=== PATIENT | male | born 1975 | race Caucasian/White ===

== ENCOUNTER → 2018-10-07 | Outpatient (CLI) | payer OTHER ==
--- NOTE | 2018-10-07 08:49 | US ---
EXAMINATION TYPE: US liver DATE OF EXAM: 10/07/2018 COMPARISON: NONE CLINICAL HISTORY: R94.5 abnormal liver function test. Abnormal liver function tests, patient states no other symptoms. EXAM MEASUREMENTS: Liver Length: 15.8 cm Gallbladder Wall: 0.2 cm CBD: 0.4 cm Right Kidney: 11.4 x 5.7 x 5.2 cm Pancreas: obscured by overlying midline bowel gas Liver: There is increased echogenicity of the hepatic parenchyma with diminished visualization of the portal triads most commonly relating to hepatic steatosis and limiting evaluation for underlying hep atic masses. Gallbladder: wnl Evidence for sonographic Childs's sign: no CBD: visualized portions wnl, limited by overlying bowel gas Right Kidney: wnl IMPRESSION: 1. Sonographic findings most commonly related to hepatic steatosis. Correlate with liver function guilherme t results. 2. No sonographic evidence of cholelithiasis nor acute cholecystitis.
== END | disposition home or self-care (01) ==
LOC: RADUSWWP 08:04
PROVIDERS: ATTEND Family Medicine
DX: R94.5 Abnormal results of liver function studies (principal)
CPT/HCPCS: 76705

== ENCOUNTER → 2020-05-09 | Outpatient (CLI) | payer OTHER ==
[2020-05-10 01:26] LABS: Albumin 4.6 g/dL (3.80-4.90); Albumin/Globulin Ratio 2.09 (1.60-3.17); Bilirubin, Conjugated 0.2 mg/dL (0.20-0.40); Bilirubin,Unconjugated 0.5 mg/dL; Globulin 2.2 g/dL (1.6-3.3); Total Bilirubin 0.7 mg/dL (0.3-1.2); Total Protein 6.8 g/dL (6.2-8.2)
[2020-05-10 01:36] LABS: Ferritin 701.4 ng/mL (22.0-322.0)
== END | disposition home or self-care (01) ==
LOC: LABWHC1 15:02
PROVIDERS: ATTEND Family Medicine
DX: R94.5 Abnormal results of liver function studies (principal)
CPT/HCPCS: 36415; 80076; 82728; 82977; 84466

== ENCOUNTER → 2020-10-19 | Outpatient (CLI) | payer OTHER ==
--- NOTE | 2020-10-20 03:19 | MR ---
EXAMINATION TYPE: MR knee RT wo con DATE OF EXAM: 10/19/2020 COMPARISON: None HISTORY: Right knee pain. Multiplanar multiecho imaging of the right knee without contrast. There is moderate knee joint effusion. The anterior and posterior cruciate ligaments appear normal. T here is large horizontal tear through the anterior and posterior horns of the lateral meniscus. I see no definite tear of the medial meniscus. The collateral ligaments appear intact. There is no evidence of a fracture. I see no bony destructive process. Knee joint spaces are fairly normal. IMPRESSION: Horizontal tears of the anterior and posterior horns of the lateral meniscus. Knee joint effusion. No fracture. No evidence of ligamentous tear.
== END | disposition home or self-care (01) ==
LOC: RADMRIMAIN 16:51
PROVIDERS: ATTEND Family Medicine
DX: M23.341 Other meniscus derangements, anterior horn of lateral meniscus, right knee (principal); M23.351 Other meniscus derangements, posterior horn of lateral meniscus, right knee

== ENCOUNTER → 2021-06-13 | Outpatient (CLI) | payer BC ==
[2021-06-13 22:47] LABS: Basophils # (A) 0.04 X 10*3/uL (0.00-0.10); Basophils % (A) 0.5 %; Eosinophils # (A) 0.04 X 10*3/uL (0.04-0.35); Eosinophils % (A) 0.5 %; HCT 48.7 % (39.6-50.0); HGB 16.1 g/dL (13.0-17.0); Immature Grans, Automated 0.1 %; Lymphocytes # (A) 1.58 X 10*3/uL (0.90-5.00); Lymphocytes % (A) 20.1 %; MCH 34.1 pg (27.0-32.0); MCHC 33.1 g/dL (32.0-37.0); MCV 103.2 fL (80.0-97.0); Mean Platelet Volume 12.7 fL (9.5-12.2); Monocytes # (A) 0.69 X 10*3/uL (0.20-1.00); Monocytes % (A) 8.8 %; NRBC Per 100 WBC 0 /100 WBCS (0.0-0.0); Neutrophils # (A) 5.49 X 10*3/uL (1.80-7.70); Platelet Count 206 X 10*3/uL (140-440); RBC 4.72 X 10*6/uL (4.40-5.60); RDW 11.7 % (11.5-14.5); WBC 7.85 X 10*3/uL (4.50-10.00)
[2021-06-13 23:39] LABS: Anion Gap 12.3 mmol/L (10.00-18.00); Carbon Dioxide 23.5 mmol/L (20.0-27.5); Potassium 4.4 mmol/L (3.5-5.5)
== END | disposition home or self-care (01) ==
LOC: LABPAT 16:23
PROVIDERS: ATTEND Orthopaedic Surgery
DX: Z01.812 Encounter for preprocedural laboratory examination (principal); M23.91 Unspecified internal derangement of right knee
CPT/HCPCS: 36415; 80051; 85025

== ENCOUNTER → 2021-06-20 | Outpatient (CLI) | payer BC ==
[2021-06-21 00:27] LABS: ALT 45 U/L (10-49); AST 38 U/L (14-35); Albumin 4.6 g/dL (3.8-4.9); Alkaline Phosphatase 102 U/L (41-126); BUN/Creat Ratio 9.78 Ratio (12.00-20.00); Blood Urea Nitrogen 8.8 mg/dL (9.0-27.0); Calcium 9.4 mg/dL (8.7-10.3); Carbon Dioxide 24.5 mmol/L (20.0-27.5); Chloride 101 mmol/L (96-109); Chol/HDL Ratio 4.09 Ratio; Globulin 2.7 g/dL (1.6-3.3); Glucose 84 mg/dL (70-110); LDL Cholesterol,Calculated 92.5 mg/dL (0.0-131.0); Non-African American GFR(CKD) 103.5 (60.0-200.0); Potassium 4.1 mmol/L (3.5-5.5); Sodium 138 mmol/L (135-145); Total Protein 7.3 g/dL (6.2-8.2); Uric Acid 7.7 mg/dL (3.7-8.7)
[2021-06-21 01:09] LABS: Basophils # (A) 0.04 X 10*3/uL (0.00-0.10); Basophils % (A) 0.6 %; Eosinophils # (A) 0.05 X 10*3/uL (0.04-0.35); Eosinophils % (A) 0.7 %; HCT 47.7 % (39.6-50.0); HGB 15.9 g/dL (13.0-17.0); Immature Grans, Automated 0.3 %; Lymphocytes # (A) 1.49 X 10*3/uL (0.90-5.00); Lymphocytes % (A) 21.4 %; MCH 34.4 pg (27.0-32.0); MCHC 33.3 g/dL (32.0-37.0); MCV 103.2 fL (80.0-97.0); Mean Platelet Volume 12.8 fL (9.5-12.2); Monocytes # (A) 0.79 X 10*3/uL (0.20-1.00); Monocytes % (A) 11.4 %; NRBC Per 100 WBC 0 /100 WBCS (0.0-0.0); Neutrophils # (A) 4.57 X 10*3/uL (1.80-7.70); Neutrophils % (A) 65.6 %; Platelet Count 191 X 10*3/uL (140-440); RBC 4.62 X 10*6/uL (4.40-5.60); RDW 11.9 % (11.5-14.5); WBC 6.96 X 10*3/uL (4.50-10.00)
== END | disposition home or self-care (01) ==
LOC: LABWHC1 15:27
PROVIDERS: ATTEND Family Medicine
DX: Z00.00 Encounter for general adult medical examination without abnormal findings (principal)
CPT/HCPCS: 36415; 80053; 80061; 83036; 84443; 84550; 85025

== ENCOUNTER 2021-06-22 12:48 | Day surgery (SDC) | payer BC, OTHER ==
[2021-06-20 11:27] VITALS: BMI 34.2
--- NOTE | 2021-06-21 14:39 | HP ---
HISTORY AND PHYSICAL DATE OF SURGERY: 06/22/2021 Davide Troncoso is a 46-year-old gentleman seen with progressive right knee pain. We discussed options for treatment. He elected to proceed with right knee arthroscopy. Consent was obtained. PAST MEDICAL HISTORY: Gout, hypertension. PAST SURGICAL HISTORY: Noncontributory. DAILY MEDICATIONS: Allopurinol, amlodipine. ALLERGIES: NONE. SOCIAL HISTORY: He denies tobacco use. PHYSICAL EVALUATION OF THE RIGHT KNEE: Range of motion is zero to 120. Tenderness along the medial joint line. Tenderness along the lateral joint line. Positive lateral Donato's. Ligaments stable. Hip rotation without pain. Distal neurovascular exam intact. Right knee radiographs revealed mild osteoarthritis. MRI right knee revealed lateral meniscal tears and effusion. IMPRESSION: 1. Internal derangement of right knee lateral meniscal tear. 2. Hypertension. 3. Gout. PLAN: Right knee arthroscopy with partial lateral meniscectomy and debridement. MMODL / IJN: [id number] /
[~2021-06-22 12:48] MED LIST: DEXAMETHASONE SOD PHOSPHATE 4 MG/ML 1 ML VIAL IV ONE; LACTATED RINGERS 1,000 ML IV SCH; LIDOCAINE 1% (10MG/ML) FOR IV START INTRADERMA PRN; METOCLOPRAMIDE 5 MG/ML 2 ML VIAL IVP PRN; ONDANSETRON 4 MG/2 ML VIAL IVP ONE
[2021-06-22] MEDS ORDERED: KETOROLAC 15 MG/ML 1 ML VIAL ONE (15:21)
[2021-06-22] MEDS ORDERED: PROPOFOL 10 MG/ML 20 ML VIAL IV ONE (15:21)
[2021-06-22] MEDS ORDERED: MIDAZOLAM 2 MG/2 ML VIAL ONE (15:21)
[2021-06-22] MEDS ORDERED: fentaNYL (PF) 50 MCG/ML 2 ML AMP ONE (15:21)
[2021-06-22] MEDS ORDERED: HYDROmorphone (PF) 1 MG/ML ONE (15:21)
[2021-06-22] MEDS ORDERED: LIDOCAINE 2% INJ 20 MG/ML (2 ML VIAL) ONE (15:21)
[2021-06-22] MEDS ORDERED: BUPIVACAINE (PF) 0.25% 30 ML VIAL INTRAARTIC ONE (15:45)
--- NOTE | 2021-06-22 16:00 | P.OP ---
Date of Procedure: 06/22/21 Preoperative Diagnosis: Internal derangement right knee Postoperative Diagnosis: 1. Tear lateral meniscus right knee 2. Reactive synovitis medial, lateral and suprapatellar compartments right knee Procedure(s) Performed: 1. Arthroscopic partial medial meniscectomy right knee 2. Arthroscopic partial synovectomy medial, lateral and suprapatellar compartments right knee Anesthesia: PRINCEA, local Surgeon: Charles Sultana Estimated Blood Loss (ml): 5 Pathology: none sent Condition: stable Disposition: PACU Indications for Procedure: 46-year-old patient seen with progressive right knee pain. After treatment options were discussed, he elected to proceed with arthroscopy. Operative Findings: See description of procedure Description of Procedure: Patient was taken to the operative suite. Patient underwent a general an esthetic by the department of anesthesia. Patient was given preoperative antibiotics. The right lower extremity was placed in a well-padded arthroscopic leg murillo. The right leg was prepped and draped in the normal sterile orthopedic fashion. A lateral parapatellar and suprapatellar incision was made. Trochars were inserted. Arthroscopy was initiated. Suprapatellar pouch revealed diffuse thick reactive synovitis. The patellofemoral joint appeared to articulate congruently. There was no chondromalacia present. The scope was guided into the medial gutter. No loose bodies or plica were identified. The scope was then guided into the medial compartment. A medial parapatellar incision was made. Trocar inserted followed by probe. The medial meniscus was probed and was found to be stable. There was some crystalline formation consistent with gout. There was no significant chondromalacia. There was some thick reactive synovitis anteriorly. I introduced a motorized shaver and I performed a partial synovectomy. Shaver was now removed. There was good decompression of the synovitis. Scope and probe were then guided into the intercondylar notch. Cruciates were identified, probed and found to be stable. The scope and probe were then guided into lateral compartment. There was a radial tear mid body lateral meniscus. There again was some crystalline formation throughout the lateral compartment as well consistent with gout. There was some thick reactive synovitis anteriorly. I performed a partial lateral meniscectomy. The residual meniscus was stable. I now performed a partial synovectomy. There was good decompression of synovitis. The scope was in guided back into the suprapatellar compartment. I used a motorized shaver into the suprapatellar compartment. I performed a partial synovectomy. Shaver was removed. There was good decompression of the synovitis. I took one more look around the entire knee, no residual debris. Instruments were now removed from the joint. The joint was infiltrated with .25% Marcaine. Steri-Strips were applied to the portal sites. Sterile dressings were applied. The patient was placed into a JAIME hose. No tourniquet was utilized. The patient was awakened, transferred to a bed and taken to recovery stable satisfactory condition.
[2021-06-22] MEDS: HYDROmorphone 0.5 MG/0.5 ML SYRINGE IVP PRN ×2 (16:05→16:10)
[2021-06-22 16:13] VITALS: RESP 16; TEMP 97
[2021-06-22 16:53] VITALS: BP 120/73; PULSE 88
== END 2021-06-22 17:06 | disposition home or self-care (01) ==
LOC: OR 12:48
PROVIDERS: ATTEND Orthopaedic Surgery
DX: M23.200 Derangement of unspecified lateral meniscus due to old tear or injury, right knee (principal); M65.861 Other synovitis and tenosynovitis, right lower leg; M10.9 Gout, unspecified; I10 Essential (primary) hypertension; Z98.890 Other specified postprocedural states; Z79.899 Other long term (current) drug therapy
CPT/HCPCS: 29881; 29876; J2250; J1100; J0690; J2405; J3010; J1170 ×2; J1885; J2704; J2001

== ENCOUNTER 2023-09-03 10:05 | Day surgery (SDC) | payer BC ==
[2023-09-02 08:30] VITALS: BMI 34.2
[2023-09-03 11:25] VITALS: TEMP 97.4
[2023-09-03] MEDS: IV FLUID CONTINUATION 1,000 ML IV ONE ×2 (11:30→13:16)
[2023-09-03] MEDS: LACTATED RINGERS 1,000 ML IV SCH (11:31)
[2023-09-03] MEDS ORDERED: PROPOFOL 10 MG/ML 20 ML VIAL IV ONE (13:21)
--- NOTE | 2023-09-03 13:36 | P.PCN ---
Date of Procedure: 09/03/23 Procedure(s) Performed: BRIEF HISTORY: Patient is a 48-year-old pleasant white male scheduled for an elective colonoscopy as a part of screening for colorectal neoplasia PROCEDURE PERFORMED: Colonoscopy. PREOPERATIVE DIAGNOSIS: Screening for colon cancer. IV sedation per Anesthesia. PROCEDURE: After informed consent was obtained, the patient, was brought into the endoscopy unit. IV sedation was administered by Anesthesia under continuous monitoring. Digital rectal examination was normal. Initially the Olympus CF-160 flexible video colonoscope was then inserted in the rectum, gradually advanced into the cecum without any difficulty. Careful examination was performed as the scope was gradually being withdrawn. Ileocecal valve and the appendiceal orifice were visualized and appeared normal. Prep was excellent. Mucosa of the cecum, ascending colon, transverse colon, descending colon, sigmoid colon, and rectum appeared normal. Retroflexion was performed in the rectum and grade 2 internal hemorrhoids were seen. The patient tolerated the procedure well. IMPRESSION: Normal-appearing colon from rectum to cecum no evidence of colorectal neoplasia. Grade 2 internal hemorrhoids. RECOMMENDATIONS: Findings of this examination were discussed with the patient as well as his family. He was advised to have a repeat screening colonoscopy in 10 years..
[2023-09-03] MEDS: IV FLUID CONTINUATION 450 ML IV ONE (13:38)
[2023-09-03 14:05] VITALS: BP 118/76; PULSE 70; RESP 20
== END 2023-09-03 14:16 | disposition home or self-care (01) ==
LOC: ORWHC2ENDO 10:05
PROVIDERS: ATTEND Internal Medicine Gastroenterology
DX: K64.1 Second degree hemorrhoids (principal); I10 Essential (primary) hypertension; Z91.048 Other nonmedicinal substance allergy status; Z79.899 Other long term (current) drug therapy
CPT/HCPCS: 45378; J2704